=== PATIENT | female | born 1985 | race African-American/Black ===

== ENCOUNTER → 2024-02-13 | Day surgery (SDC) | payer OTHER ==
[~2024-02-13] MED LIST: ACETAMINOPHEN 1000 MG/100 ML 100 ML IV ONE; BUPIVACAINE LIPOSOME/PF 266 MG/20 ML IJ ONE; DEXAMETHASONE SOD PHOS INJ 4 MG/ML SDV ONE; DEXMEDETOMIDINE HCL 2 ML ONE; DEXTROSE 5% 250ML 250 ML IV ONE; EYE LUBRICANT OPTH OINT 3.5GM TUBE OP ONE; FAMOTIDINE 20 MG/2 ML VIAL IV ONE; FENTANYL CITRATE/PF 100MCG/2 ML INJ ONE; GLIPIZIDE ER5 MG PO; LACTATED RINGER'S 1,000 ML ONE; LIDOCAINE HCL 2% LOCAL INJ 5 ML SDV VIAL INJ ONE; METOCLOPRAMIDE HCL 10 MG/2ML VIAL ONE; MIDAZOLAM HCL 2 MG/2 ML VIAL ONE; MOUNJARO7.5 MG/0.5 SC; ONDANSETRON HCL INJ 2MG/ML 2ML 2 MG/ML VIAL ONE; PROPOFOL IV EMULSION 10 MG/ML 20 ML VIAL ONE; ROCURONIUM BROMIDE 1 ML IV ONE; SODIUM CHLORIDE 0.9% 100 ML ONE
[2024-02-13 08:31] LABS: BASOPHILS % 0.7 % (0.0-1.0); EOSINOPHILS # (AUTO) 0.1 (0.0-0.4); EOSINOPHILS % 1.5 % (0.0-6.0); HEMATOCRIT 39.8 % (34.2-44.1); HEMOGLOBIN 11.9 g/dL (12.0-16.0); LYMPHOCYTES # (AUTO) 2.6 (1.0-3.2); LYMPHOCYTES % 43.2 % (18.0-39.1); MEAN CORPUSCULAR HEMOGLOBIN 27.4 pg (28-32); MEAN CORPUSCULAR HGB CONC 29.9 g/dL (31-35); MEAN CORPUSCULAR VOLUME 91.5 fL (81-99); MONOCYTES # (AUTO) 0.4 (0.2-0.8); MONOCYTES % 7.1 % (4.4-11.3); NEUTROPHILS # (AUTO) 2.8 (2.1-6.9); NEUTROPHILS % 47.2 % (38.7-80.0); PLATELET COUNT 301 x10e3/uL (140-360); RED BLOOD COUNT 4.35 x10e6/uL (3.6-5.1); RED CELL DISTRIBUTION WIDTH 15.6 % (11.7-14.4)
[2024-02-13 08:42] LABS: INR 0.97; PROTHROMBIN TIME 13.5 seconds (11.9-14.5)
[2024-02-13 08:43] LABS: PARTIAL THROMBOPLASTIN TIME 28.7 seconds (23.8-35.5)
[2024-02-13 08:50] LABS: ANION GAP 11.8 mmol/L (8-16); CALCIUM 8.9 mg/dL (8.4-10.2); CREATININE, SERUM 0.83 mg/dL (0.57-1.11); POTASSIUM 3.8 mmol/L (3.5-5.1)
[2024-02-13 11:51] VITALS: TEMP 97.5
[2024-02-13] MEDS: FENTANYL CITRATE/PF 100MCG/2 ML INJ ONE (12:05)
[2024-02-13 12:50] VITALS: BP 125/98; PULSE 78; RESP 16; O2SAT 97
== END | disposition home or self-care (01) ==
LOC: OR 07:35
PROVIDERS: ATTEND Otolaryngology Otolaryngology/Facial Plastic Surgery
DX: J35.01 Chronic tonsillitis (principal); A42.9 Actinomycosis, unspecified; E11.9 Type 2 diabetes mellitus without complications; E66.01 Morbid (severe) obesity due to excess calories; Z79.84 Long term (current) use of oral hypoglycemic drugs; Z79.85 Long-term (current) use of injectable non-insulin antidiabetic drugs
CPT/HCPCS: 36415; 42826; 80048; 84702; 85025; 85610; 85730; 88304; 93005; C9290; J0131; J1100; J2003; J2250; J2405; J2704; J2765; J3010; J7050; J7121